=== PATIENT | female | born 1995 | race Caucasian/White ===

== ENCOUNTER 2021-09-11 11:57 | Emergency (ER) | payer BC ==
[~2021-09-11] VITALS: Ht 154.9 cm; Wt 56.8 kg
[2021-09-11 12:20] VITALS: BP 120/92
== END 2021-09-11 15:24 | disposition home or self-care (01) ==
LOC: ER 11:59
DX: U07.1 COVID-19 (principal)
CPT/HCPCS: 87635; 99283; C9803; 99285